=== PATIENT | male | born 1995 ===

== ENCOUNTER 2021-11-23 20:29 | Emergency (ER) | payer SELFPAY ==
[~2021-11-23] VITALS: Ht 203.2 cm; Wt 84.0 kg
[2021-11-23 20:46] VITALS: BP 140/85
[2021-11-23] MEDS ORDERED: PENI500T2 PO (21:47)
[2021-11-23] MEDS ORDERED: ketorolac trometh. 30mg/ml inj. IM ONE (21:50)
[2021-11-23] MEDS ORDERED: penicillin V potassium 500mg tablet PO ONE (21:50)
--- NOTE | 2021-11-23 22:00 | NUR ---
im given po med given dental information given
== END 2021-11-23 22:01 | disposition home or self-care (01) ==
LOC: ER 20:30
DX: K08.89 Other specified disorders of teeth and supporting structures (principal)
CPT/HCPCS: 96372; 99283; J1885